=== PATIENT | male | born 1970 | race Caucasian/White ===

== ENCOUNTER 2016-06-06 11:11 | Emergency (ER) | payer OTHER ==
[~2016-06-06] VITALS: Ht 180.3 cm; Wt 11.8 kg
[2016-06-06] MEDS ORDERED: PREDNISONE20 MG PO (11:39)
[2016-06-06] MEDS ORDERED: FLEXERIL10 MG PO (11:39)
[2016-06-06] MEDS ORDERED: NAPROSYN500 MG PO (11:39)
[2016-06-06 12:07] VITALS: BP 140/98
== END 2016-06-06 12:08 | disposition home or self-care (01) ==
LOC: EME 11:11 → RME 11:11
DX: M54.12 Radiculopathy, cervical region (principal); M54.2 Cervicalgia; M62.838 Other muscle spasm
CPT/HCPCS: 99281; 99282